=== PATIENT | male | born 1980 | race Caucasian/White ===

== ENCOUNTER 2023-02-18 10:40 | Outpatient (REF) | payer OTHER, SELFPAY ==
--- NOTE | ~2023-02-18 | US_ITS ---
EXAMINATION: US SCROTUM CLINICAL INFORMATION: Right testicular pain. COMPARISON: None available. TECHNIQUE: A sonogram of the scrotum was performed assessing davis-scale appearance and color Doppler flow. Spectral Doppler analysis of the arterial and venous flow were performed in the testes bilaterally. FINDINGS: RIGHT: Right testicle measures 5.2 x 2.3 x 3.3 cm, volume 21.0 mL. No focal testicular parenchymal lesions are visualized. Spectral Doppler analysis of the arterial and venous flow is normal in the right testis. 0.9 cm cyst right epididymal head. No right hydrocele. Possible borderline varicocele is seen. Right epididymal Doppler flow is normal. LEFT: Left testicle measures 4.7 x 2.3 x 3.4 cm, volume 19.2 mL. No focal testicular parenchymal lesions are visualized. Spectral Doppler analysis of the arterial and venous flow is normal in the left testis. 0.8 cm cyst left epididymal head. No left hydrocele. Possible borderline varicocele is seen. Left epididymal Doppler flow is normal. US/US scrotum IMPRESSION: 1. Bilateral epididymal head cysts. 2. Bilateral borderline varicoceles.
== END 2023-02-18 10:41 | disposition home or self-care (01) ==
LOC: HO.UMASIMG 10:40
PROVIDERS: Visit Provider Student in an Organized Health Care Education/Training Program
DX: N50.811 Right testicular pain (principal)
CPT/HCPCS: 76870